=== PATIENT | male | born 1990 | race Two or more races ===

== ENCOUNTER 2024-03-09 00:32 | Emergency (ER) | payer OTHER ==
[~2024-03-09] VITALS: Ht 177.8 cm; Wt 97.5 kg
[2024-03-09] MEDS ORDERED: KETOROLAC TROMETHAMINE 60 MG VIAL IM STA (02:35)
[2024-03-09] MEDS ORDERED: KETOROLAC TROMETHAMINE 60 MG VIAL IM ONE (02:50)
== END 2024-03-09 02:54 | disposition home or self-care (01) ==
LOC: ER 00:33
DX: M79.671 Pain in right foot (principal)